=== PATIENT | male | born 1970 | race African-American/Black ===

== ENCOUNTER 2018-01-24 16:46 | Emergency (ER) | payer OTHER ==
[2018-01-24 16:51] VITALS: TEMP 97.7
[2018-01-24] MEDS ORDERED: NS 500 ML IV ONE (16:58)
[2018-01-24] MEDS ORDERED: IOPAMIDOL (ISOVUE 370) 100 ML BTL IV ONE (17:02)
--- NOTE | 2018-01-24 17:13 | CPEKG ---
Heart Rate: 64 RR Interval: 938 P-R Interval: 192 QRSD Interval: 110 QT Interval: 428 QTC Interval: 442 P [place]: 74 QRS [place]: 55 T Wave [place]: 21 EKG Severity - ABNORMAL ECG - EKG Impression: SINUS RHYTHM EKG Impression: NONSPECIFIC INTRAVENTRICULAR CONDUCTION DELAY Electronically Signed By: Odilon Diaz 24-Jan-2018 20:28:12
[2018-01-24] MEDS ORDERED: ONDANSETRON 4 MG/2 ML VIAL IVP ONE (17:15)
[2018-01-24] MEDS ORDERED: HYDROmorphONE/DILAUDID 1 MG/ML INJ IVP ONE (17:15)
[2018-01-24] MEDS ORDERED: DEXAMETHASONE 10 MG/ML VIAL IVP ONE (17:19)
[2018-01-24] MEDS ORDERED: METOCLOPRAMIDE 10 MG/2 ML VIAL IVP ONE (17:19)
[2018-01-24] MEDS ORDERED: fentaNYL 100 MCG/2 ML INJ IVP ONE (17:21)
[2018-01-24] MEDS ORDERED: fentaNYL 100 MCG/2 ML INJ ONE (17:21)
--- NOTE | 2018-01-24 17:32 | EDPHY ---
H & P Time Seen by Provider: 01/24/18 16:57 HPI/ROS: HPI Headache, dizzy, vomiting. 47-year-old male by ambulance. This patient reports that he was driving in his car 30 min prior to arrival. He describes having a sudden onset headache described as frontal as well as posterior, sharp and aching, followed by nausea and vomiting as well as vertigo. He has no prior history of migraine headaches or other aches. He vomited x1, describes this is nonbilious nonbloody. EMS and nursing staff initially reported a right-sided facial droop on triage evaluation. I was at the patient's bedside 2-3 minutes after his arrival. On my evaluation. There is no evidence of facial droop. Please see below for further details. ROS: Constitutional: No fever, no chills. No weakness. Eyes: No discharge. As above. ENT: No sore throat. No nasal congestion or rhinorrhea. Respiratory: No cough. No shortness of breath. Cardiac: No chest pain, no palpitations. Gastrointestinal: No abdominal pain, as above, no diarrhea. Genitourinary: No hematuria. No dysuria or increased frequency with urination. Musculoskeletal: No back pain. No neck pain. No myalgias or arthralgias. Skin: No rashes. Neurological: As above. No focal weakness or altered sensation. Past medical history: Patient states he has a prior history of depression. He reports that he stopped taking his antidepressant medication about a week ago.. Social history: Nonsmoker. He reports that he drinks daily but states his last drink was yesterday. No IV drugs or street drugs. He is here by himself. Physical Exam: General Appearance: Alert, he appears uncomfortable, he has a towel over his eyes. This patient is responding to questions appropriately and in full sentences. This patient appears well-hydrated and well-nourished. Eyes: Pupils equal and round and reactive to light, small at 2-1 mm bilaterally but symmetric no pallor or injection. No lid edema, erythema or injection. Photophobia present. No nystagmus. ENT, Mouth: Mucous membranes are moist. The pharyngeal tissues are unremarkable. No edema or swelling. No asymmetry suggestive of abscess. No erythema or exudates. No tongue lacerations or abrasions. Respiratory: There are no retractions, lungs are clear to auscultation with good air movement bilaterally. Cardiovascular: Regular rate and rhythm. No murmur. Gastrointestinal: Abdomen is soft and nontender, no masses, bowel sounds normal. No focal tenderness at McBurney's point. No Flynn sign. Neurological: Motor sensory function is grossly intact. Cranial nerves are normal. Speech is normal. Cerebellar function, [id number], [id number] normal. Skin: Warm and dry, no rashes. Musculoskeletal: Neck is supple and nontender. No pain on flexion of the neck. No suboccipital tenderness on palpation. No tenderness on palpation of the lateral soft tissues of the neck. Extremities are symmetrical. All joints range without pain or impingement. Psychiatric: No agitation. No depression. Database: EKG: EKG time is 5:11 p.m.; EKG shows a narrow complex normal sinus rhythm with a ventricular rate of 64. The [place], QRS, QT intervals are within normal limits. There are no ST-T wave changes indicative of ischemic or injury pattern. No evidence of right heart strain. Interpreted by me. Imaging: CT head without contrast: Negative. Results were discussed with staff radiologist Dr. Jaskaran Reese. CT angiogram of head and neck: Negative. Results were discussed with staff radiologist Dr. Jaskaran Reese. Procedures: Emergency department course: IV placed. Vital signs reviewed and are normal. EKG obtained and reviewed by myself. I discussed neurologic imaging including CT angiogram a noncontrast CT of the brain with the patient. He consents. Patient will be given IV fentanyl for pain control as well as IV Decadron and Zofran for nausea. 5:35 p.m., patient has returned from CT. He now reports complete resolution of his headache. States he still feels some mild nausea but has no vertigo. Repeat neurologic Assessment is non focal. He will be given some Zofran for nausea but no other medications. He never received any fentanyl or Decadron. 6:45 p.m., patient re-evaluated. He denies any headache at this time. Repeat neurologic Assessment is nonfocal. He is up and ambulatory with a normal gait. Results of his EKG, blood work and CT scans discussed with him and his mother. I did discuss observation admission with him he declines this. He is requesting discharge. The patient competently engages in shared decision making. They demonstrate capacitance to make decisions. I will have him follow up with Neurology. Return to emergency department precautions were thoroughly reviewed with him. All of his questions were answered. He was discharged in good condition. Differential Diagnosis: The differential diagnosis on this patient includes but is not limited to migraine headache resolved. Posterior circulation stroke, subarachnoid hemorrhage, migraine headache. Meningitis, encephalitis, cavernous sinus thrombosis, vertebral artery dissection, carotid artery dissection unlikely. sagittal sinus thrombosis, temporal arteritis unlikely. This represents a partial list of diagnoses considered. These considerations are based on history , physical exam, past history, reassessment and diagnostic testing. Smoking Status: Never smoked Constitutional: Initial Vital Signs Temperature (C) 36.5 C 01/24/18 16:48 Heart Rate 69 01/24/18 16:48 Respiratory Rate 18 01/24/18 16:48 Blood Pressure 129/73 H 01/24/18 16:48 O2 Sat (%) 94 01/24/18 16:48 O2 Delivery Mode Room Air Allergies/Adverse Reactions: No Known Allergies Allergy (Unverified 01/24/18 16:50) Home Medications: Medication Instructions Recorded NK [No Known Home Meds] 01/24/18 Medical Decision Making - Diagnostics Imaging Results: Imaging Impressions Head CT 01/24/18 16:58 Impression: 1. 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 2. No acute intracranial abnormality seen. The patient had subsequent CT angiogram procedure. Findings discussed with Odilon Diaz MD at 18:07 hour, 01/24/2018. Head CTA 01/24/18 16:[address]: [address] angiogram of the neck. 2. Normal CT angiogram of the [place] with normal variation, as detailed above. 3. Relatively small caliber vertebrobasilar system. The posterior cerebral arteries are supplied by the posterior communicating artery bilaterally. Note: All calculations were performed using NASCET criteria. Findings discussed with Odilon Diaz MD at 18:20 hour, 01/24/2018. Neck CTA 01/24/18 16:[address]: [address] angiogram of the neck. 2. Normal CT angiogram of the [place] with normal variation, as detailed above. 3. Relatively small caliber vertebrobasilar system. The posterior cerebral arteries are supplied by the posterior communicating artery bilaterally. Note: All calculations were performed using NASCET criteria. Findings discussed with Odilon Diaz MD at 18:20 hour, 01/24/2018. - Data Points Laboratory Results: 01/24/18 17:03 POC Hgb 17.0 gm/dL gm/dL (13.7-17.5) POC Hct 50 % % (40-51) POC Sodium 143 mEq/L mEq/L (135-145) POC Potassium 3.1 mEq/L L mEq/L (3.3-5.0) POC Chloride 108 mEq/L mEq/L (97-110) POC BUN 21 mg/dL mg/dL (7-23) POC Creatinine 1.1 mg/dL mg/dL (0.7-1.3) POC Glucose 135 mg/dL H mg/dL (70-100) Medications Given: Discontinued Medications Hydromorphone HCl (Dilaudid) 0.5 mg IVP EDNOW ONE Stop: 01/24/18 17:16 Last Admin: 01/24/18 17:21 Dose: Not Given Sodium Chloride (Ns) 500 mls @ 500 mls/hr IV EDNOW ONE PRN Reason: Protocol Stop: 01/24/18 17:57 Last Admin: 01/24/18 17:01 Dose: 500 mls Ondansetron HCl (Zofran) 4 mg IVP EDNOW ONE Stop: 01/24/18 17:16 Last Admin: 01/24/18 17:36 Dose: 4 mg Point of Care Test Results: 01/24/18 17:03 POC Sodium 143 POC Potassium 3.1 L POC Chloride 108 POC BUN 21 POC Creatinine 1.1 POC Glucose 135 H Departure - Departure Disposition: Home, Routine, Self-Care Clinical Impression: Headache, Vomiting Condition: Good Instructions: Acute Headache (ED) Additional Instructions: Read and follow provided instructions. Follow-up with Neurology within the next 2-3 days for re-evaluation as discussed. Call the office of Dr. Apolinar Jang for appointment time. Explained this is for a emergency department follow-up for headache and vertigo. Return to the emergency department for return of headache, vomiting, confusion or other serious concerns. Referrals: Apolinar Jang, DO [Medical Doctor] - As per Instructions
[2018-01-24 18:51] VITALS: BP 129/69; PULSE 78; RESP 12; O2SAT 98
== END 2018-01-24 18:50 | disposition home or self-care (01) ==
LOC: EDUNIT#
DX: R51 Headache (principal); R11.10 Vomiting, unspecified; E86.9 Volume depletion, unspecified
CPT/HCPCS: 82947-QW; 96374; J1100; J1200; J2405; J2765; J3010; Q9967